=== PATIENT | male | born 1960 | race Two or more races ===

== ENCOUNTER 2016-08-10 00:36 | Emergency (ER) | payer BC ==
[~2016-08-10] VITALS: Ht 177.8 cm; Wt 113.4 kg
[2016-08-10 01:05] LABS: BASOPHILS # (AUTO) 0.1 /CMM (0.0-0.2); BASOPHILS % (AUTO) 0.6 % (0.0-2.0); DIFF TOTAL % 100 %; EOSINOPHILS # (AUTO) 0.3 /CMM (0.0-0.7); EOSINOPHILS % (AUTO) 3.3 % (0.0-6.0); HEMATOCRIT 46 % (39-51); HEMOGLOBIN 15.8 g/dL (13.5-17.5); LYMPHOCYTES % (AUTO) 28.5 % (20.0-44.0); MEAN CORPUSCULAR HEMOGLOBIN 32 PG (26.0-33.0); MEAN CORPUSCULAR HGB CONC 35 g/dl (31.0-36.0); MEAN CORPUSCULAR VOLUME 93 fL (80-96); MONOCYTES # (AUTO) 0.7 /CMM (0.1-1.30); NEUTROPHILS # (AUTO) 6.4 /CMM (1.8-8.9); NEUTROPHILS % (AUTO) 60.6 % (43.0-81.0); PLATELET COUNT (AUTO) 278 /CMM (150-450); RED BLOOD CELL COUNT(AUTO) 4.91 MIL/uL (4.5-6.0); WHITE BLOOD COUNT (AUTO) 10.5 K/uL (4.3-11.0)
[2016-08-10] MEDS ORDERED: ONDANSETRON 4 MG TAB.RAPDIS ONE (01:12)
[2016-08-10] MEDS ORDERED: HYDROMORPHONE 1 MG/1 ML DISP.SYRIN ONE (01:13)
[2016-08-10 01:17] LABS: CALCIUM, SERUM 9.4 mg/dL (8.5-10.1); CREATININE 0.8 mg/dL (0.6-1.3)
[2016-08-10 01:20] LABS: INR 0.93 (0.87-1.13)
[2016-08-10 01:24] LABS: ALBUMIN 3.8 g/dL (3.4-5.0); BILIRUBIN,DIRECT 0.1 mg/dL (0.0-0.2); BILIRUBIN,TOTAL 0.4 mg/dL (0.2-1.0); INDIRECT BILIRUBIN 0.3 mg/dL (0.0-1.1); TOTAL PROTEIN, SERUM 8.2 g/dL (6.4-8.2)
[2016-08-10 02:10] VITALS: BP 140/79
== END 2016-08-10 02:11 | disposition home or self-care (01) ==
LOC: ER 00:36
DX: K80.20 Calculus of gallbladder without cholecystitis without obstruction (principal); I10 Essential (primary) hypertension; F17.210 Nicotine dependence, cigarettes, uncomplicated
CPT/HCPCS: 36415; 80048-TC; 80076-TC; 83690-TC; 85025-TC; 85730-TC; A4606; J1170; Q0162; Z7610

== ENCOUNTER 2016-08-12 11:55 | Inpatient (IN) | payer BC ==
[~2016-08-12] VITALS: Ht 167.6 cm; Wt 96.6 kg
[2016-08-12] MEDS ORDERED: IV SET PRIMARY 1 EA INFUS.SET MC ONE (12:59)
[2016-08-12] MEDS ORDERED: MORPHINE SULFATE INJ 4 MG/ML DISP.SYRIN ONE (12:59)
[2016-08-12] MEDS ORDERED: IV NS 0.9% 1,000 ML ONE (12:59)
[2016-08-12] MEDS ORDERED: ONDANSETRON HCL/PF 4 MG/2 ML VIAL ONE (12:59)
[2016-08-12] MEDS ORDERED: MORPHINE SULFATE INJ 2 MG/ML DISP.SYRIN IV ONE ×2 (13:00→15:00)
[2016-08-12] MEDS ORDERED: IV NS 0.9% 1,000 ML BAG IV ONE (13:00)
[2016-08-12] MEDS ORDERED: ONDANSETRON HCL/PF 4 MG/2 ML VIAL IVP ONE (13:00)
[2016-08-12 13:08] LABS: BASOPHILS # (AUTO) 0.1 /CMM (0.0-0.2); BASOPHILS % (AUTO) 1.3 % (0.0-2.0); DIFF TOTAL % 100 %; EOSINOPHILS % (AUTO) 0.4 % (0.0-6.0); HEMATOCRIT 48 % (39-51); HEMOGLOBIN 16.6 g/dL (13.5-17.5); LYMPHOCYTES # (AUTO) 2.7 /CMM (0.8-4.8); LYMPHOCYTES % (AUTO) 26.2 % (20.0-44.0); MEAN CORPUSCULAR HEMOGLOBIN 32 PG (26.0-33.0); MEAN CORPUSCULAR HGB CONC 35 g/dl (31.0-36.0); MEAN CORPUSCULAR VOLUME 93 fL (80-96); MONOCYTES # (AUTO) 0.8 /CMM (0.1-1.30); MONOCYTES % (AUTO) 7.6 % (2.0-12.0); NEUTROPHILS # (AUTO) 6.6 /CMM (1.8-8.9); NEUTROPHILS % (AUTO) 64.5 % (43.0-81.0); PLATELET COUNT (AUTO) 290 /CMM (150-450); RED BLOOD CELL COUNT(AUTO) 5.17 MIL/uL (4.5-6.0); WHITE BLOOD COUNT (AUTO) 10.2 K/uL (4.3-11.0)
[2016-08-12 13:13] LABS: CALCIUM, SERUM 9.3 mg/dL (8.5-10.1)
[2016-08-12 13:19] LABS: ALBUMIN 3.5 g/dL (3.4-5.0); BILIRUBIN,DIRECT 0.2 mg/dL (0.0-0.2); BILIRUBIN,TOTAL 0.9 mg/dL (0.2-1.0); INDIRECT BILIRUBIN 0.7 mg/dL (0.0-1.1); TOTAL PROTEIN, SERUM 8.4 g/dL (6.4-8.2)
[2016-08-12 13:49] LABS: LACTIC ACID 0.9 mmol/L (0.4-2.0)
[2016-08-12] MEDS ORDERED: METRONIDAZOLE 500MG/ NS 100ML 100 ML IV ONE ×2 (14:58→15:00)
[2016-08-12] MEDS ORDERED: IV SET PRIMARY PUMP SET 1 EA INFUS.SET MC ONE ×2 (14:58→18:44)
[2016-08-12] MEDS ORDERED: CEFTRIAXONE 1GM BAG (ER ONLY) 50 ML IV ONE (14:58)
[2016-08-12] MEDS ORDERED: MORPHINE SULFATE INJ 10 MG/ML DISP.SYRIN ONE (14:58)
[2016-08-12] MEDS ORDERED: CEFTRIAXONE 1 G in IV D5W 50 ML IV ONE (15:00)
[2016-08-12] MEDS ORDERED: TAMS-12 PO (15:53)
[2016-08-12] MEDS ORDERED: FENO134C PO (15:53)
[2016-08-12] MEDS ORDERED: ARIP10TA15 PO (15:53)
[2016-08-12] MEDS ORDERED: METF500T PO (15:53)
[2016-08-12] MEDS ORDERED: ATOR20TA PO (15:53)
[2016-08-12] MEDS ORDERED: RANI150T12 PO (15:53)
[2016-08-12] MEDS ORDERED: SERT50TA PO (15:53)
[2016-08-12] MEDS ORDERED: LURA40TA PO (15:53)
[2016-08-12] MEDS ORDERED: TEMA30CA5 PO (15:53)
[2016-08-12] MEDS ORDERED: OXYC-34 PO (15:53)
[2016-08-12] MEDS ORDERED: ALBU18HF2 IH (15:53)
[2016-08-12] MEDS ORDERED: TERA5CAP4 PO (15:53)
[2016-08-12 17:30] LABS: INR 0.93 (0.87-1.13)
[2016-08-12] MEDS ORDERED: TEMAZEPAM 15 MG CAPSULE PO PRN (18:30)
[2016-08-12] MEDS ORDERED: ALBUTEROL SULFATE 8 GM HFA.AER.AD IH PRN ×2 (18:30→19:34)
[2016-08-12] MEDS ORDERED: IV NS 0.9% 1,000 ML IV PRN (18:32)
[2016-08-12] MEDS ORDERED: HYDROMORPHONE 1 MG/1 ML DISP.SYRIN IV PRN (19:00)
[2016-08-12] MEDS ORDERED: ACETAMINOPHEN 325 MG TABLET PO PRN (19:00)
[2016-08-12] MEDS ORDERED: ONDANSETRON HCL/PF 4 MG/2 ML VIAL IV PRN (19:00)
[2016-08-12] MEDS ORDERED: MORPHINE SULFATE INJ 2 MG/ML DISP.SYRIN IV PRN (19:00)
[2016-08-12] MEDS ORDERED: HYDROCODONE/APAP 10/325MG 1 EA TABLET PO PRN (19:00)
[2016-08-12] MEDS ORDERED: ONDANSETRON HCL/PF 4 MG/2 ML VIAL IVP PRN (19:00)
[2016-08-12] MEDS ORDERED: Z GUARD REMEDY 2 OZ OINT TP PRN (19:00)
[2016-08-12] MEDS ORDERED: ZOLPIDEM TARTRATE 5 MG TABLET PO PRN (19:00)
[2016-08-12 20:00] VITALS: BP_SYST 96; BP_DIAS 60; BP_DIAS 61
[2016-08-12] MEDS ORDERED: CT SWABBABLE VALVE TRANS SET 1 EA INFUS.SET MC ONE ×2 (20:21→22:35)
[2016-08-12] MEDS ORDERED: DIATR MEGLU/DIATRIZOATE SODIUM 30 ML BOTTLE (GASTROGRAPHIN) ONE (20:21)
[2016-08-12] MEDS ORDERED: IV NS 0.9% 250 ML IV ONE ×2 (20:22→22:35)
[2016-08-12] MEDS ORDERED: IOHEXOL-300 100 ML VIAL IV ONE ×2 (20:22→22:35)
[2016-08-12] MEDS ORDERED: IV LR 1000 ML 1,000 ML IV SCH (20:30)
[2016-08-12] MEDS: HYDROMORPHONE 1 MG/1 ML DISP.SYRIN IV PRN ×2 (21:04→23:29)
[2016-08-12] MEDS: ATORVASTATIN 10 MG TABLET PO SCH (21:09)
[2016-08-13] MEDS: HYDROMORPHONE 1 MG/1 ML DISP.SYRIN IV PRN ×2 (01:42→21:02)
[2016-08-13] MEDS: TAMSULOSIN 0.4 MG CAP.SR.24H PO SCH (06:00)
[2016-08-13 06:56] LABS: BASOPHILS % (AUTO) 0.3 % (0.0-2.0); DIFF TOTAL % 100 %; EOSINOPHILS # (AUTO) 0.2 /CMM (0.0-0.7); EOSINOPHILS % (AUTO) 2.3 % (0.0-6.0); HEMATOCRIT 41 % (39-51); LYMPHOCYTES # (AUTO) 2.3 /CMM (0.8-4.8); LYMPHOCYTES % (AUTO) 28.7 % (20.0-44.0); MEAN CORPUSCULAR HEMOGLOBIN 32 PG (26.0-33.0); MEAN CORPUSCULAR HGB CONC 34 g/dl (31.0-36.0); MEAN CORPUSCULAR VOLUME 94 fL (80-96); MONOCYTES # (AUTO) 0.7 /CMM (0.1-1.30); MONOCYTES % (AUTO) 8.4 % (2.0-12.0); NEUTROPHILS # (AUTO) 4.9 /CMM (1.8-8.9); NEUTROPHILS % (AUTO) 60.3 % (43.0-81.0); PLATELET COUNT (AUTO) 276 /CMM (150-450); WHITE BLOOD COUNT (AUTO) 8.2 K/uL (4.3-11.0)
[2016-08-13 07:04] LABS: ALBUMIN 2.8 g/dL (3.4-5.0); BILIRUBIN,TOTAL 0.8 mg/dL (0.2-1.0); CALCIUM, SERUM 8.9 mg/dL (8.5-10.1); CREATININE 0.9 mg/dL (0.6-1.3); PHOSPHORUS 2.9 mg/dL (2.5-4.9); POTASSIUM 3.9 mmol/L (3.5-5.1); TOTAL PROTEIN, SERUM 7.3 g/dL (6.4-8.2)
[2016-08-13 07:06] LABS: THYROID STIMULATING HORMONE 2.457 uIU/mL (0.358-3.74)
[2016-08-13] MEDS: PANTOPRAZOLE 40 MG TABLET.DR PO SCH (07:30)
[2016-08-13 08:00] VITALS: BP 114/71
[2016-08-13] MEDS: FENOFIBRATE NANOCRYS (145 MG) 145 MG TABLET PO SCH (09:00)
[2016-08-13] MEDS: TERAZOSIN HCL 5 MG CAPSULE PO SCH (09:00)
[2016-08-13] MEDS: ARIPIPRAZOLE 5 MG TABLET PO SCH ×2 (09:00→17:00)
[2016-08-13] MEDS: METFORMIN 500 MG TABLET PO SCH ×2 (09:00→17:00)
[2016-08-13] MEDS: SERTRALINE HCL 50 MG TABLET PO SCH (09:00)
[2016-08-13] MEDS ORDERED: LORAZEPAM INJ 2 MG/ML VIAL IV ONE (11:00)
[2016-08-13] MEDS ORDERED: BUPIVACAINE MPF 0.5% W/EPI INJ 30 ML VIAL ONE (14:21)
[2016-08-13] MEDS ORDERED: FENTANYL PF 100MCG/2ML AMPUL ONE (14:22)
[2016-08-13] MEDS ORDERED: HYDROMORPHONE INJ 2 MG/ML DISP.SYRIN ONE ×2 (14:22→17:06)
[2016-08-13] MEDS ORDERED: ROCURONIUM BROMIDE 50 MG/5 ML ONE ×2 (14:23→15:02)
[2016-08-13] MEDS ORDERED: SUCCINYLCHOLINE CHLORIDE 20 MG/ML VIAL ONE (14:23)
[2016-08-13 16:00] VITALS: BP 120/79
[2016-08-13] MEDS ORDERED: GELATIN SPONGE,ABSORBABLE 1 EA SPONGE TP ONE (16:26)
[2016-08-13] MEDS ORDERED: IV SET PRIMARY PUMP SET 1 EA INFUS.SET MC ONE (18:36)
[2016-08-13] MEDS ORDERED: HYDROMORPHONE HCL 2 MG TABLET PO PRN (19:00)
[2016-08-13] MEDS ORDERED: KETOROLAC TROMETHAMINE INJ 30 MG/ML VIAL IV PRN (19:00)
[2016-08-13] MEDS ORDERED: HYDROCODONE/APAP 5/325MG 1 EACH TABLET PO PRN (19:00)
[2016-08-13 20:00] VITALS: BP 120/78
[2016-08-13] MEDS: ANCEF 1 GM/50 ML D5W IV SCH ×2 (20:44)
[2016-08-13] MEDS: NICOTINE PATCH (21MG) 21 MG PATCH.TD24 TD SCH (20:46)
[2016-08-13] MEDS: ATORVASTATIN 10 MG TABLET PO SCH (21:01)
[2016-08-13] MEDS ORDERED: SECONDARY IV SET 1 EA INFUS.SET MC ONE (21:15)
[2016-08-13 21:23] LABS: BASOPHILS % (AUTO) 0.1 % (0.0-2.0); DIFF TOTAL % 100 %; HEMATOCRIT 41 % (39-51); HEMOGLOBIN 13.7 g/dL (13.5-17.5); LYMPHOCYTES # (AUTO) 0.8 /CMM (0.8-4.8); LYMPHOCYTES % (AUTO) 9.3 % (20.0-44.0); MEAN CORPUSCULAR HEMOGLOBIN 32 PG (26.0-33.0); MEAN CORPUSCULAR HGB CONC 34 g/dl (31.0-36.0); MEAN CORPUSCULAR VOLUME 93 fL (80-96); MONOCYTES # (AUTO) 0.2 /CMM (0.1-1.30); MONOCYTES % (AUTO) 2.3 % (2.0-12.0); NEUTROPHILS # (AUTO) 7.7 /CMM (1.8-8.9); NEUTROPHILS % (AUTO) 88.3 % (43.0-81.0); PLATELET COUNT (AUTO) 305 /CMM (150-450); RED BLOOD CELL COUNT(AUTO) 4.34 MIL/uL (4.5-6.0); WHITE BLOOD COUNT (AUTO) 8.7 K/uL (4.3-11.0)
[2016-08-13 21:27] LABS: ALBUMIN 2.6 g/dL (3.4-5.0); BILIRUBIN,TOTAL 0.5 mg/dL (0.2-1.0); CALCIUM, SERUM 8.8 mg/dL (8.5-10.1); CREATININE 0.9 mg/dL (0.6-1.3); POTASSIUM 4.2 mmol/L (3.5-5.1); TOTAL PROTEIN, SERUM 7.2 g/dL (6.4-8.2)
[2016-08-14] MEDS: ANCEF 1 GM/50 ML D5W IV SCH ×8 (01:54→21:56)
[2016-08-14 02:34] VITALS: BP 120/79
[2016-08-14] MEDS: TAMSULOSIN 0.4 MG CAP.SR.24H PO SCH (05:43)
[2016-08-14 07:27] LABS: BASOPHILS % (AUTO) 0.3 % (0.0-2.0); DIFF TOTAL % 100 %; HEMATOCRIT 41 % (39-51); HEMOGLOBIN 14.1 g/dL (13.5-17.5); LYMPHOCYTES # (AUTO) 1.1 /CMM (0.8-4.8); LYMPHOCYTES % (AUTO) 9.1 % (20.0-44.0); MEAN CORPUSCULAR HEMOGLOBIN 32 PG (26.0-33.0); MEAN CORPUSCULAR HGB CONC 34 g/dl (31.0-36.0); MEAN CORPUSCULAR VOLUME 93 fL (80-96); MONOCYTES # (AUTO) 0.4 /CMM (0.1-1.30); MONOCYTES % (AUTO) 3.6 % (2.0-12.0); NEUTROPHILS # (AUTO) 10.9 /CMM (1.8-8.9); PLATELET COUNT (AUTO) 323 /CMM (150-450); RED BLOOD CELL COUNT(AUTO) 4.41 MIL/uL (4.5-6.0); WHITE BLOOD COUNT (AUTO) 12.5 K/uL (4.3-11.0)
[2016-08-14] MEDS: PANTOPRAZOLE 40 MG TABLET.DR PO SCH ×2 (07:30→09:51)
[2016-08-14 07:49] LABS: CALCIUM, SERUM 9.4 mg/dL (8.5-10.1); CREATININE 0.8 mg/dL (0.6-1.3); POTASSIUM 4.3 mmol/L (3.5-5.1)
[2016-08-14 08:00] VITALS: BP 127/69
[2016-08-14] MEDS: METFORMIN 500 MG TABLET PO SCH ×3 (09:00→17:00)
[2016-08-14] MEDS: ARIPIPRAZOLE 5 MG TABLET PO SCH ×3 (09:00→17:00)
[2016-08-14] MEDS: SERTRALINE HCL 50 MG TABLET PO SCH ×2 (09:00→09:51)
[2016-08-14] MEDS: FENOFIBRATE NANOCRYS (145 MG) 145 MG TABLET PO SCH ×2 (09:00→09:51)
[2016-08-14] MEDS: TERAZOSIN HCL 5 MG CAPSULE PO SCH (09:00)
[2016-08-14] MEDS: NICOTINE PATCH (21MG) 21 MG PATCH.TD24 TD SCH (10:01)
[2016-08-14] MEDS: HYDROMORPHONE 1 MG/1 ML DISP.SYRIN IV PRN ×4 (12:34→23:59)
[2016-08-14 16:00] VITALS: BP 119/77
[2016-08-14 20:00] VITALS: BP 107/66
[2016-08-14] MEDS: ATORVASTATIN 10 MG TABLET PO SCH (21:59)
[2016-08-15] MEDS: IV LR 1000 ML 1,000 ML IV PRN (00:03)
[2016-08-15] MEDS: HYDROMORPHONE 1 MG/1 ML DISP.SYRIN IV PRN ×3 (03:02→14:11)
[2016-08-15] MEDS: ANCEF 1 GM/50 ML D5W IV SCH ×8 (03:02→20:46)
[2016-08-15] MEDS: TAMSULOSIN 0.4 MG CAP.SR.24H PO SCH (05:41)
[2016-08-15 07:04] LABS: BASOPHILS % (AUTO) 0.3 % (0.0-2.0); DIFF TOTAL % 100 %; EOSINOPHILS % (AUTO) 0.2 % (0.0-6.0); HEMATOCRIT 37 % (39-51); HEMOGLOBIN 13.1 g/dL (13.5-17.5); LYMPHOCYTES # (AUTO) 2.5 /CMM (0.8-4.8); LYMPHOCYTES % (AUTO) 22.5 % (20.0-44.0); MEAN CORPUSCULAR HEMOGLOBIN 32 PG (26.0-33.0); MEAN CORPUSCULAR HGB CONC 35 g/dl (31.0-36.0); MEAN CORPUSCULAR VOLUME 92 fL (80-96); MONOCYTES # (AUTO) 0.6 /CMM (0.1-1.30); MONOCYTES % (AUTO) 5.4 % (2.0-12.0); NEUTROPHILS # (AUTO) 7.9 /CMM (1.8-8.9); NEUTROPHILS % (AUTO) 71.6 % (43.0-81.0); PLATELET COUNT (AUTO) 324 /CMM (150-450); RED BLOOD CELL COUNT(AUTO) 4.04 MIL/uL (4.5-6.0); WHITE BLOOD COUNT (AUTO) 11.1 K/uL (4.3-11.0)
[2016-08-15] MEDS: PANTOPRAZOLE 40 MG TABLET.DR PO SCH ×3 (07:30→08:33)
[2016-08-15 07:41] LABS: CALCIUM, SERUM 8.8 mg/dL (8.5-10.1); CREATININE 0.8 mg/dL (0.6-1.3); POTASSIUM 4.1 mmol/L (3.5-5.1)
[2016-08-15 08:00] VITALS: BP 121/87
[2016-08-15] MEDS: METFORMIN 500 MG TABLET PO SCH ×4 (08:34→17:16)
[2016-08-15] MEDS: SERTRALINE HCL 50 MG TABLET PO SCH ×2 (08:34→09:00)
[2016-08-15] MEDS: TERAZOSIN HCL 5 MG CAPSULE PO SCH ×2 (08:34→09:00)
[2016-08-15] MEDS: ARIPIPRAZOLE 5 MG TABLET PO SCH ×4 (08:34→17:16)
[2016-08-15] MEDS: FENOFIBRATE NANOCRYS (145 MG) 145 MG TABLET PO SCH ×2 (08:34→09:00)
[2016-08-15] MEDS: NICOTINE PATCH (21MG) 21 MG PATCH.TD24 TD SCH (08:34)
[2016-08-15 16:00] VITALS: BP 115/76
[2016-08-15] MEDS: HYDROCODONE/APAP 10/325MG 1 EA TABLET PO SCH ×2 (17:17→21:25)
[2016-08-15] MEDS: DOCUSATE SODIUM 100 MG CAPSULE PO SCH (17:41)
[2016-08-15 20:00] VITALS: BP 125/85
[2016-08-15] MEDS: KETOROLAC TROMETHAMINE INJ 30 MG/ML VIAL IV SCH ×2 (21:00→22:58)
[2016-08-15] MEDS: ATORVASTATIN 10 MG TABLET PO SCH ×2 (21:25→21:29)
[2016-08-15] MEDS ORDERED: MAGNESIUM HYDROXIDE 30 ML UDC PO SCH (22:00)
[2016-08-15] MEDS: ALBUTEROL FS 2.5 MG/0.5 ML VIAL.NEB NEB SCH (23:30)
[2016-08-15] MEDS: IPRATROPIUM NEB FS 0.5 MG/2.5 ML AMPUL.NEB NEB SCH (23:30)
[2016-08-16] MEDS: HYDROCODONE/APAP 10/325MG 1 EA TABLET PO SCH ×5 (01:00→15:57)
[2016-08-16] MEDS: IV LR 1000 ML 1,000 ML IV PRN (02:30)
[2016-08-16 05:00] VITALS: BP 110/74
[2016-08-16] MEDS: TAMSULOSIN 0.4 MG CAP.SR.24H PO SCH (06:00)
[2016-08-16] MEDS: KETOROLAC TROMETHAMINE INJ 30 MG/ML VIAL IV SCH ×2 (06:16→13:00)
[2016-08-16 07:13] LABS: BASOPHILS % (AUTO) 0.3 % (0.0-2.0); DIFF TOTAL % 100 %; EOSINOPHILS # (AUTO) 0.1 /CMM (0.0-0.7); EOSINOPHILS % (AUTO) 1.4 % (0.0-6.0); HEMATOCRIT 38 % (39-51); HEMOGLOBIN 12.9 g/dL (13.5-17.5); LYMPHOCYTES # (AUTO) 2.6 /CMM (0.8-4.8); LYMPHOCYTES % (AUTO) 26.7 % (20.0-44.0); MEAN CORPUSCULAR HEMOGLOBIN 32 PG (26.0-33.0); MEAN CORPUSCULAR HGB CONC 34 g/dl (31.0-36.0); MEAN CORPUSCULAR VOLUME 92 fL (80-96); MONOCYTES # (AUTO) 0.6 /CMM (0.1-1.30); MONOCYTES % (AUTO) 6.4 % (2.0-12.0); NEUTROPHILS # (AUTO) 6.3 /CMM (1.8-8.9); NEUTROPHILS % (AUTO) 65.2 % (43.0-81.0); PLATELET COUNT (AUTO) 379 /CMM (150-450); RED BLOOD CELL COUNT(AUTO) 4.09 MIL/uL (4.5-6.0); WHITE BLOOD COUNT (AUTO) 9.7 K/uL (4.3-11.0)
[2016-08-16] MEDS: PANTOPRAZOLE 40 MG TABLET.DR PO SCH ×2 (07:30→09:34)
[2016-08-16 07:31] LABS: CREATININE 0.9 mg/dL (0.6-1.3)
[2016-08-16 08:00] VITALS: BP 121/71
[2016-08-16] MEDS: ALBUTEROL FS 2.5 MG/0.5 ML VIAL.NEB NEB SCH ×2 (08:32→16:07)
[2016-08-16] MEDS: IPRATROPIUM NEB FS 0.5 MG/2.5 ML AMPUL.NEB NEB SCH ×2 (08:32→16:07)
[2016-08-16] MEDS: METFORMIN 500 MG TABLET PO SCH (09:00)
[2016-08-16] MEDS: ARIPIPRAZOLE 5 MG TABLET PO SCH (09:00)
[2016-08-16] MEDS: FENOFIBRATE NANOCRYS (145 MG) 145 MG TABLET PO SCH (09:00)
[2016-08-16] MEDS: TERAZOSIN HCL 5 MG CAPSULE PO SCH (09:00)
[2016-08-16] MEDS: SERTRALINE HCL 50 MG TABLET PO SCH (09:00)
[2016-08-16] MEDS: NICOTINE PATCH (21MG) 21 MG PATCH.TD24 TD SCH (09:34)
[2016-08-16] MEDS: DOCUSATE SODIUM 100 MG CAPSULE PO SCH (09:36)
[2016-08-16] MEDS ORDERED: HYDR-548 PO (14:29)
[2016-08-16] MEDS ORDERED: CEPH-570 PO (14:29)
[2016-08-16 16:00] VITALS: BP 128/68
== END 2016-08-16 17:23 | disposition home or self-care (01) | DRG 262 ==
LOC: ER 11:58 → MED 17:13
PROVIDERS: ADMIT Nurse Practitioner Acute Care; ATTEND Nurse Practitioner Acute Care
PROC: 0FN40ZZ Release Gallbladder, Open Approach (ICD-10-PCS; principal; 2016-08-13 11:55)
PROC: 0FJ44ZZ Inspection of Gallbladder, Percutaneous Endoscopic Approach (ICD-10-PCS; principal; 2016-08-13 11:55)
PROC: 0FT40ZZ Resection of Gallbladder, Open Approach (ICD-10-PCS; principal; 2016-08-13 11:55)
PROC: 0DNS0ZZ (ICD-10-PCS; principal; 2016-08-13 11:55)
DX: K80.12 Calculus of gallbladder with acute and chronic cholecystitis without obstruction (principal); K76.0 Fatty (change of) liver, not elsewhere classified; E87.1 Hypo-osmolality and hyponatremia; E78.5 Hyperlipidemia, unspecified; N40.0 Benign prostatic hyperplasia without lower urinary tract symptoms; F32.9 Major depressive disorder, single episode, unspecified; Z72.0 Tobacco use; J44.9 Chronic obstructive pulmonary disease, unspecified; E11.9 Type 2 diabetes mellitus without complications; K59.00 Constipation, unspecified; K66.0 Peritoneal adhesions (postprocedural) (postinfection)
CPT/HCPCS: 36415; 71010-TC; 71020-TC; 76705-TC; 80048-TC; 80053-TC; 80061-TC; 80076-TC; 83605-TC; 83690-TC; 83735-TC; 84100-TC; 84443-TC; 85025-TC; 85730-TC; 86850-TC; 86901; 87040-TC; 87070-TC; 87075-TC; 87081-TC; 88304-TC; 88305-TC; A4606; A6402; J0330; J0690; J0696; J1170; J1885; J2060; J2270; J2405; J3010; J3490; J7030; J7050; J7060; J7120; Q9963; Q9967; Z7610

== ENCOUNTER 2017-11-03 20:00 | Emergency (ER) | payer BC, OTHER ==
[~2017-11-03] VITALS: Ht 170.2 cm; Wt 95.3 kg
[~2017-11-03 20:00] MED LIST: ALBU18HF2 IH; ARIP10TA9 PO; ATOR20TA PO; CEPH-570 PO; FENO134C PO; HYDR-548 PO; LURA40TA PO; METF500T PO; RANI150T43 PO; SERT50TA PO; TAMS-12 PO; TEMA30CA5 PO; TERA5CAP4 PO
--- NOTE | 2017-11-03 20:00 | NUR ---
BB ; 3 DAYS GRADUAL SOB, TODAY LEFT SIDED CHEST PAIN 7/10 RADIATING TO NECK, PRESSURE LIKE. NO SOB AT THIS MOMENT. VSS NAD A/OX4 WILL CONTINUE TO MONITOR FOR ANY CHANGES DURING THE SHIFT.
--- NOTE | 2017-11-03 20:05 | NUR ---
ER MD [place] AT BEDSIDE
[2017-11-03] MEDS ORDERED: BISACODYL (5 MG) 5 MG TABLET.DR ONE (20:20)
[2017-11-03] MEDS ORDERED: ASPIRIN 325 MG TABLET ONE (20:22)
[2017-11-03] MEDS ORDERED: NITROGLYCERIN PACKET 1 GM PACKET ONE (20:22)
[2017-11-03] MEDS ORDERED: BISACODYL (5 MG) 5 MG TABLET.DR PO ONE (20:30)
[2017-11-03] MEDS: ASPIRIN 325 MG TABLET PO ONE (20:31)
[2017-11-03] MEDS: NITROGLYCERIN PACKET 1 GM PACKET TD ONE (20:31)
--- NOTE | 2017-11-03 20:31 | NUR ---
EKG AT BEDSIDE
[2017-11-03 20:43] LABS: BASOPHILS % (AUTO) 0.3 % (0.0-2.0); EOSINOPHILS % (AUTO) 4.2 % (0.0-6.0); HEMATOCRIT 43 % (39-51); HEMOGLOBIN 15.1 g/dL (13.5-17.5); LYMPHOCYTES % (AUTO) 40.9 % (20.0-44.0); MEAN CORPUSCULAR HGB CONC 35 g/dl (31.0-36.0); MEAN CORPUSCULAR VOLUME 92 fL (80-96); MONOCYTES % (AUTO) 6.1 % (2.0-12.0); NEUTROPHILS % (AUTO) 48.5 % (43.0-81.0); PLATELET COUNT (AUTO) 306 /CMM (150-450); RDW COEFFICIENT OF VARIATION 13.6 (11.5-15.0); RED BLOOD CELL COUNT(AUTO) 4.63 MIL/uL (4.5-6.0); WHITE BLOOD COUNT (AUTO) 8.2 K/uL (4.3-11.0)
[2017-11-03 20:44] LABS: LYMPHOCYTES # (AUTO) 3.3 /CMM (0.8-4.8); MONOCYTES # (AUTO) 0.5 /CMM (0.1-1.30)
--- NOTE | 2017-11-03 20:45 | NUR ---
ASSOCIATE ART DIRECTOR AT BEDSIDE
[2017-11-03 20:49] LABS: CALCIUM, SERUM 9.5 mg/dL (8.5-10.1); CARBON DIOXIDE 26 mmol/L (21-32); CHLORIDE 104 mmol/L (98-107); GLUCOSE 142 mg/dL (74-106); POTASSIUM 3.9 mmol/L (3.5-5.1); SODIUM SERUM 138 mmol/L (136-145); UREA NITROGEN, BLOOD 23 mg/dL (7-18)
[2017-11-03 20:53] LABS: INR 0.89 (0.87-1.13)
[2017-11-03 20:59] LABS: TROPONIN I < 0.017 ng/mL (0.00-0.056)
--- NOTE | 2017-11-03 21:05 | NUR ---
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
--- NOTE | 2017-11-03 21:17 | NUR ---
CALLED NURSING SUP. FOR TELE BED
--- NOTE | 2017-11-03 22:28 | NUR ---
FAXED CLINICALS TO [facility] TO [place] [phone]
[2017-11-03 22:51] VITALS: BP 129/77
== END 2017-11-03 22:52 | disposition left against medical advice (07) ==
LOC: ER 20:02
DX: R07.89 Other chest pain (principal); R06.02 Shortness of breath; K21.9 Gastro-esophageal reflux disease without esophagitis; F17.210 Nicotine dependence, cigarettes, uncomplicated; E78.5 Hyperlipidemia, unspecified; E11.9 Type 2 diabetes mellitus without complications; N40.0 Benign prostatic hyperplasia without lower urinary tract symptoms; Z79.84 Long term (current) use of oral hypoglycemic drugs; Z90.49 Acquired absence of other specified parts of digestive tract
CPT/HCPCS: 36415; 71045-TC; 80048-TC; 84484-TC; 85025-TC; 85730-TC; 87081-TC; A4606; Z7610

== ENCOUNTER 2018-04-15 15:15 | Emergency (ER) | payer BC ==
[~2018-04-15] VITALS: Ht 165.1 cm; Wt 104.3 kg
--- NOTE | 2018-04-15 15:15 | NUR ---
PRESENTS TO ER C/O NAUSEA AND DIARRHEA X LAST NIGHT. A/OX 4, BREATHING EVEN AND UNLABORED. NO SOB, NAD, VITALS STABLE. SAFETY AND COMFORT MEASURES IN PLACE. AWAITING MD ORDERS.
[2018-04-15] MEDS ORDERED: IV NS 0.9% 1,000 ML BAG IV ONE (16:00)
[2018-04-15] MEDS ORDERED: MORPHINE SULFATE INJ 2 MG/ML DISP.SYRIN IV ONE (16:00)
[2018-04-15] MEDS ORDERED: ONDANSETRON HCL/PF 4 MG/2 ML VIAL IVP ONE (16:00)
[2018-04-15] MEDS ORDERED: PANTOPRAZOLE 40 MG VIAL IV ONE (16:00)
[2018-04-15] MEDS ORDERED: MORPHINE SULFATE INJ 4 MG/ML DISP.SYRIN ONE (16:02)
[2018-04-15] MEDS ORDERED: ONDANSETRON HCL/PF 4 MG/2 ML VIAL ONE (16:02)
[2018-04-15] MEDS ORDERED: PANTOPRAZOLE 40 MG VIAL ONE (16:08)
--- NOTE | 2018-04-15 16:10 | NUR ---
NEW IV STARTED ON LAC, 20G. BLOOD DRAWN AND SENT TO LAB.
[2018-04-15 16:13] LABS: BASOPHILS # (AUTO) 0.1 /CMM (0.0-0.2); MONOCYTES # (AUTO) 0.8 /CMM (0.1-1.30)
[2018-04-15 16:16] LABS: EOSINOPHILS % (AUTO) 0.6 % (0.0-6.0); HEMATOCRIT 52 % (39-51); HEMOGLOBIN 17.9 g/dL (13.5-17.5); LYMPHOCYTES # (AUTO) 2.3 /CMM (0.8-4.8); LYMPHOCYTES % (AUTO) 33.6 % (20.0-44.0); MEAN CORPUSCULAR HGB CONC 34 g/dl (31.0-36.0); MEAN CORPUSCULAR VOLUME 93 fL (80-96); MONOCYTES % (AUTO) 11.8 % (2.0-12.0); NEUTROPHILS # (AUTO) 3.6 /CMM (1.8-8.9); PLATELET COUNT (AUTO) 248 /CMM (150-450); RDW COEFFICIENT OF VARIATION 13.5 (11.5-15.0); RED BLOOD CELL COUNT(AUTO) 5.66 MIL/uL (4.5-6.0); WHITE BLOOD COUNT (AUTO) 6.8 K/uL (4.3-11.0)
[2018-04-15 16:21] LABS: CALCIUM, SERUM 9.3 mg/dL (8.5-10.1); CREATININE 1.3 mg/dL (0.6-1.3); POTASSIUM 4.3 mmol/L (3.5-5.1)
[2018-04-15 16:25] LABS: INR 0.94 (0.85-1.15)
[2018-04-15 16:26] LABS: ALBUMIN 3.8 g/dL (3.4-5.0); BILIRUBIN,DIRECT 0.1 mg/dL (0.0-0.2); BILIRUBIN,TOTAL 0.4 mg/dL (0.2-1.0); TOTAL PROTEIN, SERUM 8.7 g/dL (6.4-8.2)
--- NOTE | 2018-04-15 16:28 | NUR ---
KAREEMEN TAKEN TO CT VIA WHEELCHAIR.
[2018-04-15] MEDS ORDERED: CT SWABBABLE VALVE TRANS SET 1 EA INFUS.SET MC ONE (16:32)
[2018-04-15] MEDS ORDERED: IOHEXOL-300 100 ML VIAL IV ONE (16:32)
[2018-04-15] MEDS ORDERED: IV NS 0.9% 250 ML IV ONE (16:33)
--- NOTE | 2018-04-15 16:40 | NUR ---
PATIENT RETURNED FROM CT IN STABLE CONDITION.
--- NOTE | 2018-04-15 17:18 | NUR ---
URINE OBTAINED AND SENT TO LAB.
[2018-04-15 17:23] LABS: APPEARANCE,URINE Clear (CLEAR); BILIRUBIN,URINE Negative (NEGATIVE); BLOOD, URINE Trace-intact Ery/uL (NEGATIVE); COLOR,URINE Yellow (YELLOW); KETONES,URINE Negative (NEGATIVE); LEUKOCYTE ESTERASE ,URINE Negative (NEGATIVE); NITRITE, URINE Negative (NEGATIVE); PROTEIN,URINE 100 mg/dl (NEGATIVE); UGLUCOSE Negative (NEGATIVE)
[2018-04-15 17:35] LABS: BACTERIA,URINE Rare /HPF (None Seen); SQUAMOUS EPITHELIAL CELL,UR Rare /HPF (None Seen); WBC,URINE 0-2 /HPF (0-3)
[2018-04-15 18:28] VITALS: BP 145/92
--- NOTE | 2018-04-15 18:40 | NUR ---
IV removed. Catheter intact and site benign. Pressure and 4x4 applied to site. No bleeding noted. Patient left AMA to home in stable condition. Written and verbal after care instructions given. Patient verbalizes understanding of instruction.
== END 2018-04-15 18:40 | disposition left against medical advice (07) ==
LOC: ER 15:17
DX: K92.2 Gastrointestinal hemorrhage, unspecified (principal); R19.7 Diarrhea, unspecified; I10 Essential (primary) hypertension; E11.9 Type 2 diabetes mellitus without complications; E78.00 Pure hypercholesterolemia, unspecified; J42 Unspecified chronic bronchitis; F17.200 Nicotine dependence, unspecified, uncomplicated; K21.9 Gastro-esophageal reflux disease without esophagitis; E66.9 Obesity, unspecified; Z90.49 Acquired absence of other specified parts of digestive tract
CPT/HCPCS: 36415; 71045-TC; 80048-TC; 80076-TC; 81000-TC; 83690-TC; 85025-TC; 85730-TC; A4606; C9113; J2270; J2405; J7030; J7050; Q9967; Z7610

== ENCOUNTER 2019-02-25 20:01 | Emergency (ER) | payer MEDICAID ==
[~2019-02-25] VITALS: Ht 170.2 cm; Wt 99.8 kg
[~2019-02-25 20:01] MED LIST changes: +HYDR-4354 PO; -HYDR-548 PO; +RANI-655 PO; -RANI150T43 PO
--- NOTE | 2019-02-25 20:21 | NUR ---
Pt placed in bed.
[2019-02-25] MEDS ORDERED: CEPHALEXIN MONOHYDRATE 500 MG CAPSULE PO ONE ×2 (20:40→21:00)
[2019-02-25] MEDS ORDERED: IBUPROFEN 600 MG TABLET PO ONE ×2 (20:40→21:00)
--- NOTE | 2019-02-25 20:56 | NUR ---
Ultrasound at the bedside.
[2019-02-25 21:20] LABS: APPEARANCE,URINE Clear (CLEAR); BILIRUBIN,URINE Negative (NEGATIVE); BLOOD, URINE Trace-intact Ery/uL (NEGATIVE); COLOR,URINE Yellow (YELLOW); KETONES,URINE Negative (NEGATIVE); LEUKOCYTE ESTERASE ,URINE Negative (NEGATIVE); NITRITE, URINE Negative (NEGATIVE); PROTEIN,URINE 30 mg/dl (NEGATIVE); UGLUCOSE Negative (NEGATIVE)
[2019-02-25 21:22] LABS: BACTERIA,URINE None seen /HPF (None Seen); SQUAMOUS EPITHELIAL CELL,UR Rare /HPF (None Seen); WBC,URINE 0-2 /HPF (0-3)
--- NOTE | 2019-02-25 21:41 | NUR ---
PT OK TO DISCHARGE PER DR ELLIOTT. Patient discharged to home in stable condition. Written and verbal after care instructions given. Patient verbalizes understanding of instruction.Patient is awake and alert to self, day, and place. PT ambulatory with a steady gait
[2019-02-25 21:42] VITALS: BP 132/77
== END 2019-02-25 21:43 | disposition home or self-care (01) ==
LOC: ER 20:08
DX: S30.861A Insect bite (nonvenomous) of abdominal wall, initial encounter (principal); L73.9 Follicular disorder, unspecified; I86.1 Scrotal varices; I10 Essential (primary) hypertension; E78.00 Pure hypercholesterolemia, unspecified; K21.9 Gastro-esophageal reflux disease without esophagitis; F17.200 Nicotine dependence, unspecified, uncomplicated; Z79.899 Other long term (current) drug therapy; W57.XXXA Bitten or stung by nonvenomous insect and other nonvenomous arthropods, initial encounter; Y93.89 Activity, other specified; Y92.89 Other specified places as the place of occurrence of the external cause; Y99.8 Other external cause status
CPT/HCPCS: 76870-TC; 81000-TC

== ENCOUNTER 2019-07-22 21:12 | Emergency (ER) | payer BC, MEDICAID ==
[~2019-07-22] VITALS: Ht 172.7 cm; Wt 100.7 kg
--- NOTE | 2019-07-22 21:23 | NUR ---
BIBS. C/O "SEEN AT [place]. DX EPIDITIMITIS. TOOK ATBX X2 DAYS. NO RELIEF. HAVING NUMBING TODAY" -SOB AOX4. VSS. AMBULATORY. "FEVER EARLIER", PT AWAKE, ALERT, -SOB, NAD NOTED, VSS, PENDING MD CHEN
[2019-07-22 21:57] LABS: APPEARANCE,URINE Clear (CLEAR); BILIRUBIN,URINE Negative (NEGATIVE); BLOOD, URINE Small Ery/uL (NEGATIVE); COLOR,URINE Yellow (YELLOW); KETONES,URINE Negative (NEGATIVE); LEUKOCYTE ESTERASE ,URINE Negative (NEGATIVE); NITRITE, URINE Negative (NEGATIVE); PH,URINE 6.5 (5.0-8.0); PROTEIN,URINE 30 mg/dl (NEGATIVE); UGLUCOSE 100 MG/DL mg/dL (NEGATIVE)
[2019-07-22 21:57] LABS: BASOPHILS % (AUTO) 0.2 % (0.0-2.0); EOSINOPHILS % (AUTO) 0.7 % (0.0-6.0); HEMATOCRIT 44 % (39-51); HEMOGLOBIN 14.8 g/dL (13.5-17.5); LYMPHOCYTES # (AUTO) 1.6 /CMM (0.8-4.8); LYMPHOCYTES % (AUTO) 11.1 % (20.0-44.0); MEAN CORPUSCULAR HGB CONC 33 g/dl (31.0-36.0); MEAN CORPUSCULAR VOLUME 96 fL (80-96); MONOCYTES # (AUTO) 0.9 /CMM (0.1-1.30); MONOCYTES % (AUTO) 6.6 % (2.0-12.0); NEUTROPHILS # (AUTO) 11.6 /CMM (1.8-8.9); NEUTROPHILS % (AUTO) 81.4 % (43.0-81.0); PLATELET COUNT (AUTO) 300 /CMM (150-450); RED BLOOD CELL COUNT(AUTO) 4.63 MIL/uL (4.5-6.0); WHITE BLOOD COUNT (AUTO) 14.2 K/uL (4.3-11.0)
[2019-07-22 22:07] LABS: CALCIUM, SERUM 9.5 mg/dL (8.5-10.1); CREATININE 0.9 mg/dL (0.6-1.3)
[2019-07-22 22:13] LABS: ALBUMIN 3.3 g/dL (3.4-5.0); BILIRUBIN,TOTAL 0.5 mg/dL (0.2-1.0); TOTAL PROTEIN, SERUM 7.9 g/dL (6.4-8.2)
[2019-07-22 22:24] LABS: BACTERIA,URINE Few /HPF (None Seen); RBC,URINE 21-50 /HPF (0-2); SQUAMOUS EPITHELIAL CELL,UR Rare /HPF (None Seen); WBC,URINE 21-50 /HPF (0-3)
[2019-07-22] MEDS ORDERED: IOHEXOL-300 100 ML VIAL IV ONE (23:05)
[2019-07-22] MEDS ORDERED: CT SWABBABLE VALVE TRANS SET 1 EA INFUS.SET MC ONE (23:05)
[2019-07-22] MEDS ORDERED: IV NS 0.9% 250 ML IV ONE (23:06)
[2019-07-23] MEDS ORDERED: KETOROLAC TROMETHAMINE 15 MG/ML VIAL ONE (00:04)
[2019-07-23] MEDS ORDERED: KETOROLAC TROMETHAMINE INJ 30 MG/ML VIAL IV ONE (00:30)
[2019-07-23 01:01] VITALS: BP 139/80
--- NOTE | 2019-07-23 01:01 | NUR ---
Patient discharged to home in stable condition. Written and verbal after care instructions given. Patient verbalizes understanding of instruction. IV removed. Catheter intact and site benign. Pressure and 4x4 applied to site. No bleeding noted.
== END 2019-07-23 01:02 | disposition home or self-care (01) ==
LOC: ER 21:13
DX: N45.1 Epididymitis (principal); I10 Essential (primary) hypertension; E78.00 Pure hypercholesterolemia, unspecified; K21.9 Gastro-esophageal reflux disease without esophagitis; F17.200 Nicotine dependence, unspecified, uncomplicated; Z79.899 Other long term (current) drug therapy; Z79.84 Long term (current) use of oral hypoglycemic drugs
CPT/HCPCS: 36415; 74177; 76870; 80048; 80076; 81001; 85025; 87077; 87086; 87186; 96374; 99284; J1885; J7050; Q9967; 81000-TC

== ENCOUNTER 2022-06-20 10:24 | Emergency (ER) | payer MEDICAID ==
[~2022-06-20] VITALS: Ht 172.7 cm; Wt 97.5 kg
--- NOTE | 2022-06-20 11:38 | NUR ---
ADMINISTRATION VICE PRESIDENT AT BEDSIDE FOR XRAY
[2022-06-20] MEDS ORDERED: ALBUTEROL FS 2.5 MG/3 ML VIAL.NEB NEB ONE (12:00)
[2022-06-20] MEDS ORDERED: IPRATROPIUM NEB FS 0.5 MG/2.5 ML AMPUL.NEB NEB ONE (12:00)
[2022-06-20 12:09] LABS: BASOPHILS # (AUTO) 0.1 K/uL (0.0-0.2); EOSINOPHILS % (AUTO) 3.5 % (0.0-6.0); HEMATOCRIT 50 % (39-51); LYMPHOCYTES # (AUTO) 3.2 K/uL (0.8-4.8); LYMPHOCYTES % (AUTO) 40.3 % (20.0-44.0); MEAN CORPUSCULAR HGB CONC 34 g/dl (31.0-36.0); MEAN CORPUSCULAR VOLUME 95 fL (80-96); MONOCYTES # (AUTO) 0.6 K/uL (0.1-1.30); MONOCYTES % (AUTO) 7.6 % (2.0-12.0); NEUTROPHILS # (AUTO) 3.7 K/uL (1.8-8.9); NEUTROPHILS % (AUTO) 47.6 % (43.0-81.0); PLATELET COUNT (AUTO) 279 K/uL (150-450); RED BLOOD CELL COUNT(AUTO) 5.28 MIL/uL (4.5-6.0); WHITE BLOOD COUNT (AUTO) 7.8 K/uL (4.3-11.0)
[2022-06-20] MEDS ORDERED: IPRATROPIUM NEB FS 0.5 MG/2.5 ML AMPUL.NEB ONE (12:15)
[2022-06-20] MEDS ORDERED: ALBUTEROL FS 2.5 MG/3 ML VIAL.NEB ONE (12:15)
[2022-06-20 12:32] LABS: CALCIUM, SERUM 10.1 mg/dL (8.5-10.1); CARBON DIOXIDE 31 mmol/L (21-32); CHLORIDE 103 mmol/L (98-107); CREATININE 0.9 mg/dL (0.6-1.3); GLUCOSE 107 mg/dL (74-106); SODIUM SERUM 138 mmol/L (136-145); UREA NITROGEN, BLOOD 21 mg/dL (7-18)
[2022-06-20 12:40] LABS: ALANINE AMINOTRANSFERASE 57 U/L (12-78); ALBUMIN 3.7 g/dL (3.4-5.0); ALKALINE PHOSPHATASE 97 U/L (46-116); ASPARTATE AMINOTRANSFERASE 51 U/L (15-37); BILIRUBIN,DIRECT 0.2 mg/dL (0.0-0.2); BILIRUBIN,TOTAL 0.7 mg/dL (0.2-1.0); TOTAL PROTEIN, SERUM 8.1 g/dL (6.4-8.2)
[2022-06-20] MEDS ORDERED: AZIT250T13 PO (13:13)
[2022-06-20] MEDS ORDERED: ALBU18HF2 INH (13:13)
[2022-06-20 13:24] VITALS: BP 125/84
--- NOTE | 2022-06-20 13:24 | NUR ---
SEEN AND EVALUATED BY DR WATTS, DISCHARGED HOME W/ PRESCRIPTION. STABLE CONDITION.
== END 2022-06-20 13:25 | disposition home or self-care (01) ==
LOC: ER 10:41
DX: R06.02 Shortness of breath (principal); R06.2 Wheezing; J42 Unspecified chronic bronchitis; I10 Essential (primary) hypertension; E78.00 Pure hypercholesterolemia, unspecified; F17.200 Nicotine dependence, unspecified, uncomplicated; Z79.84 Long term (current) use of oral hypoglycemic drugs
CPT/HCPCS: 36415; 71045-TC; 80048-TC; 80076-TC; 84484-TC; 85025-TC; 94799-TC

== ENCOUNTER 2023-03-31 17:35 | Emergency (ER) | payer MEDICAID ==
[~2023-03-31] VITALS: Ht 170.2 cm; Wt 100.7 kg
[~2023-03-31 17:35] MED LIST changes: +ALBU18HF2 INH; +AZIT250T13 PO
[2023-03-31] MEDS ORDERED: diphenhydrAMINE HCL 50 MG/ML VIAL IV ONE (18:00)
[2023-03-31] MEDS ORDERED: FAMOTIDINE/PF INJ 20 MG/2 ML VIAL IV ONE ×2 (18:00→18:43)
[2023-03-31] MEDS ORDERED: IV NS 0.9% 1,000 ML IV ONE (18:00)
[2023-03-31] MEDS ORDERED: methylPREDNISolone SOD SUCC 125 MG/2ML VIAL IV ONE (18:00)
[2023-03-31] MEDS ORDERED: methylPREDNISolone SOD SUCC 125 MG/2ML VIAL ONE (18:43)
[2023-03-31] MEDS ORDERED: diphenhydrAMINE HCL 50 MG/ML VIAL ONE (18:43)
[2023-03-31] MEDS ORDERED: DIPH25CA83 PO (20:42)
[2023-03-31] MEDS ORDERED: FAMO-131 PO (20:42)
[2023-03-31] MEDS ORDERED: PRED20TA PO (20:42)
[2023-03-31 21:20] VITALS: BP 130/81; TEMP 98.6; O2SAT 98
== END 2023-03-31 21:20 | disposition home or self-care (01) ==
LOC: ER 17:39
DX: L50.0 Allergic urticaria (principal); T36.8X5A Adverse effect of other systemic antibiotics, initial encounter; I10 Essential (primary) hypertension; E78.00 Pure hypercholesterolemia, unspecified; K21.9 Gastro-esophageal reflux disease without esophagitis; F17.200 Nicotine dependence, unspecified, uncomplicated; Z79.899 Other long term (current) drug therapy; Y92.89 Other specified places as the place of occurrence of the external cause
CPT/HCPCS: 99284; 96374; 96375; 96361; J1200; J3490; J2930; J7030